=== PATIENT | female | born 1990 | race Two or more races ===

== ENCOUNTER 2017-02-19 12:16 | Emergency (ER) | payer SELFPAY ==
[~2017-02-19] VITALS: Ht 157.5 cm; Wt 60.8 kg
--- NOTE | 2017-02-19 12:20 | NUR ---
AAOX3, [employer]IBRA [employer] FROM SCHOOL C/O R KNEE PAIN WHILE TAKING THE STAIRS, NO OBVIOUS DEFORMITY OR TRAUMA NOTED. SKIN IS WARM AND DRY. RESP IS EVEN AND UNLABORED WITH NAD NOTED. AWAITING MD FOR EVAL.
[2017-02-19] MEDS ORDERED: HYDROCODONE/APAP 10/325MG 1 EA TABLET ONE (12:37)
[2017-02-19] MEDS ORDERED: IBUPROFEN 600 MG TABLET PO ONE ×2 (12:37→13:00)
[2017-02-19] MEDS ORDERED: HYDROCODONE/APAP 10/325MG 1 EA TABLET PO ONE (13:00)
--- NOTE | 2017-02-19 13:40 | NUR ---
KIRSTEN HERNÁNDEZ AT FOR AN UPDATE AND RE-EVAL.
--- NOTE | 2017-02-19 13:51 | NUR ---
Patient discharged to home in stable condition. Written and verbal after care instructions given. Patient verbalizes understanding of instruction.
[2017-02-19 13:54] VITALS: BP 117/75
== END 2017-02-19 13:55 | disposition home or self-care (01) ==
LOC: ER 12:19
DX: S80.01XA Contusion of right knee, initial encounter (principal); W10.9XXA Fall (on) (from) unspecified stairs and steps, initial encounter; Y93.89 Activity, other specified; Y92.89 Other specified places as the place of occurrence of the external cause; Y99.8 Other external cause status
CPT/HCPCS: 29505; 73564; 99284; A4606; Z7610

== ENCOUNTER 2018-11-10 17:54 | Emergency (ER) | payer MEDICAID ==
[~2018-11-10] VITALS: Ht 157.5 cm; Wt 61.2 kg
[2018-11-10] MEDS ORDERED: HYDROCODONE/APAP 5/325MG 1 EACH TABLET ONE (18:08)
--- NOTE | 2018-11-10 18:09 | NUR ---
PT BIB SELF sciatic pain x 6-7 months, worsening recently, PT IS AAOX4, NOT IN RESPIRATORY DISTRESS, V/S STABLE, KEPT RESTED AND COMFORTABLE.
--- NOTE | 2018-11-10 18:16 | NUR ---
MS. DUTTON DEGRASSE AT BEDSIDE FOR EVAL.
[2018-11-10] MEDS ORDERED: oxyCODONE/APAP (5/325 MG) 1 UDTAB TABLET ONE (18:21)
[2018-11-10] MEDS ORDERED: ONDANSETRON 4 MG TAB.RAPDIS ONE (18:21)
[2018-11-10] MEDS ORDERED: KETOROLAC TROMETHAMINE INJ 30 MG/ML VIAL ONE (18:21)
[2018-11-10] MEDS ORDERED: oxyCODONE/APAP (5/325 MG) 1 UDTAB TABLET PO ONE (18:30)
[2018-11-10] MEDS ORDERED: ONDANSETRON 4 MG TAB.RAPDIS SL ONE (18:30)
[2018-11-10] MEDS ORDERED: KETOROLAC TROMETHAMINE INJ 60 MG/2 ML VIAL IM ONE (18:30)
[2018-11-10] MEDS ORDERED: MORPHINE SULFATE INJ 2 MG/ML DISP.SYRIN IM ONE (19:30)
[2018-11-10] MEDS ORDERED: MORPHINE SULFATE INJ 4 MG/ML DISP.SYRIN ONE (19:34)
--- NOTE | 2018-11-10 19:41 | NUR ---
REPORT GIVEN TO CONSTANTINO DENNIS FOR MONITORING OF PAIN.
--- NOTE | 2018-11-10 19:53 | NUR ---
Patient discharged to home in stable condition. Written and verbal after care instructions given. Patient verbalizes understanding of instruction. PT AMBULATORY WITH STEADY GAIT WITH FAMILY MEMBER.
[2018-11-10 19:54] VITALS: BP 124/67
== END 2018-11-10 19:54 | disposition home or self-care (01) ==
LOC: ER 18:03
DX: M54.16 Radiculopathy, lumbar region (principal); G89.29 Other chronic pain; M54.41 Lumbago with sciatica, right side
CPT/HCPCS: 96372 ×2; 99283; A4606; J1885; J2270; Q0162; Z7610

== ENCOUNTER 2018-11-28 12:23 | Emergency (ER) | payer MEDICAID ==
[~2018-11-28] VITALS: Ht 157.5 cm; Wt 62.1 kg
--- NOTE | 2018-11-28 12:45 | NUR ---
BIB SELF C/O LOW BACK PAIN RADIATING TO RT LEG & NUMBNESS ON TOES. NON TRAUMATIC PER PT. AAOX4, VSS. DENIES ANY OTHER DISCOMFORT & WILL CONT TO MONITOR.
[2018-11-28] MEDS ORDERED: KETOROLAC TROMETHAMINE INJ 30 MG/ML VIAL ONE (13:08)
[2018-11-28] MEDS ORDERED: KETOROLAC TROMETHAMINE INJ 60 MG/2 ML VIAL IM ONE (13:30)
[2018-11-28] MEDS: oxyCODONE/APAP (5/325 MG) 1 UDTAB TABLET PO ONE ×2 (13:32→14:14)
[2018-11-28] MEDS ORDERED: oxyCODONE/APAP (5/325 MG) 1 UDTAB TABLET ONE (14:00)
[2018-11-28 14:33] VITALS: BP 128/60
--- NOTE | 2018-11-28 14:33 | NUR ---
Patient discharged to home in stable condition. Written and verbal after care instructions given. Patient verbalizes understanding of instruction.
== END 2018-11-28 14:34 | disposition home or self-care (01) ==
LOC: ER 12:24
DX: M54.16 Radiculopathy, lumbar region (principal); G89.29 Other chronic pain
CPT/HCPCS: 84703-TC; J1885

== ENCOUNTER 2018-12-01 01:17 | Emergency (ER) | payer MEDICAID ==
[~2018-12-01] VITALS: Ht 157.5 cm; Wt 59.0 kg
[2018-12-01 01:28] VITALS: BP 119/76
--- NOTE | 2018-12-01 01:30 | NUR ---
PT CAME WITH FRIEND TO ER C/O R LEG PAIN, 08/20 THAT KEPT HER FROM SLEEPING TONIGHT. PT ADMITS TO HAVING HX OF SCIATICA. PT CRYING AND LAYING SUPINE IN THE BED COMPLAINING OF PAIN. PT AAXO4. RESPIRATIONS EVEN AND UNLABORED. PT PUT ON THE MONITOR AND AWAITING EVAL FROM ER .
[2018-12-01] MEDS ORDERED: KETOROLAC TROMETHAMINE INJ 30 MG/ML VIAL ONE (02:55)
[2018-12-01] MEDS ORDERED: ONDANSETRON 4 MG TAB.RAPDIS ONE (02:56)
[2018-12-01] MEDS ORDERED: MORPHINE SULFATE INJ 10 MG/ML DISP.SYRIN ONE (02:56)
[2018-12-01] MEDS ORDERED: KETOROLAC TROMETHAMINE INJ 60 MG/2 ML VIAL IM ONE (03:00)
[2018-12-01] MEDS ORDERED: MORPHINE SULFATE INJ 2 MG/ML DISP.SYRIN IM ONE (03:00)
[2018-12-01] MEDS ORDERED: ONDANSETRON 4 MG TAB.RAPDIS SL ONE (03:00)
== END 2018-12-01 03:31 | disposition home or self-care (01) ==
LOC: ER 01:17
DX: M54.41 Lumbago with sciatica, right side (principal); G89.29 Other chronic pain
CPT/HCPCS: J1885; J2270; Q0162

== ENCOUNTER 2018-12-03 06:14 | Emergency (ER) | payer MEDICAID ==
[~2018-12-03] VITALS: Ht 157.5 cm; Wt 59.0 kg
[2018-12-03] MEDS ORDERED: ONDANSETRON 4 MG TAB.RAPDIS ONE (06:52)
[2018-12-03] MEDS ORDERED: HYDROMORPHONE INJ 0.5 MG/0.5 ML SYRINGE ONE ×2 (06:52→07:47)
[2018-12-03] MEDS ORDERED: KETOROLAC TROMETHAMINE INJ 30 MG/ML VIAL ONE (06:52)
[2018-12-03] MEDS ORDERED: KETOROLAC TROMETHAMINE INJ 30 MG/ML VIAL IM ONE (07:00)
[2018-12-03] MEDS ORDERED: MORPHINE SULFATE INJ 2 MG/ML DISP.SYRIN IM ONE (07:00)
[2018-12-03] MEDS ORDERED: HYDROMORPHONE INJ 0.5 MG/0.5 ML SYRINGE IM ONE ×2 (07:00→08:00)
[2018-12-03] MEDS ORDERED: ONDANSETRON HCL 4 MG/5 ML SOLUTION PO ONE (07:00)
--- NOTE | 2018-12-03 07:04 | NUR ---
PT REC'D MEDICATION AND WARM BLANKETS. PT IS CRYING AND MOANING IN PAIN.
--- NOTE | 2018-12-03 07:12 | NUR ---
REPORT GIVEN TO CONSTANTINO SPAULDING FOR BONILLA.
--- NOTE | 2018-12-03 08:00 | NUR ---
HOTPACKS APPLIED TO R LOWER BACK
[2018-12-03] MEDS ORDERED: DIAZEPAM 10 MG TABLET ONE (08:30)
[2018-12-03] MEDS ORDERED: DIAZEPAM 10 MG TABLET PO ONE (08:30)
--- NOTE | 2018-12-03 09:25 | NUR ---
INSERTED PIV ON RAC G20, PATIENT IS STILL CRYING AND MOANING IN PAIN.
[2018-12-03 09:51] VITALS: BP 117/67
[2018-12-03] MEDS ORDERED: HYDROMORPHONE INJ 2 MG/ML DISP.SYRIN ONE (10:36)
--- NOTE | 2018-12-03 10:48 | NUR ---
[facility] PT IS GOING TO [facility] ROOM 206-[address], GIVE REPORT TO SUN [phone], ETA: [id number]-1215PM.
[2018-12-03] MEDS ORDERED: HYDROMORPHONE 1 MG/1 ML DISP.SYRIN IV ONE (11:00)
--- NOTE | 2018-12-03 11:43 | NUR ---
REPORT GIVEN TO SUN AT [facility].
--- NOTE | 2018-12-03 12:48 | NUR ---
Patient Tranfers to outside Facility Physician: DR. MCDOWELL Location: [facility] PATIENT A/OX4, PAIN TOLERABLE AT THIS TIME, NAD, VSS. LEFT WITH 2 CORONER VIA AMBULANCE.
== END 2018-12-03 12:53 | disposition short-term general hospital (02) ==
LOC: ER 06:20
DX: G89.29 Other chronic pain (principal); M54.41 Lumbago with sciatica, right side
CPT/HCPCS: J1170; J1885; Q0162

== ENCOUNTER 2018-12-09 19:45 | Emergency (ER) | payer MEDICAID ==
[~2018-12-09] VITALS: Ht 157.5 cm; Wt 59.0 kg
[2018-12-09] MEDS ORDERED: IV NS 0.9% 1,000 ML BAG IV ONE (20:30)
[2018-12-09] MEDS ORDERED: ONDANSETRON HCL/PF 4 MG/2 ML VIAL IVP ONE (20:30)
[2018-12-09] MEDS ORDERED: HYDROMORPHONE INJ 2 MG/ML DISP.SYRIN IV ONE (20:30)
[2018-12-09] MEDS ORDERED: HYDROMORPHONE 1 MG/1 ML DISP.SYRIN ONE ×3 (20:39→22:20)
[2018-12-09] MEDS ORDERED: ONDANSETRON HCL/PF 4 MG/2 ML VIAL ONE (20:39)
[2018-12-09 20:41] LABS: BASOPHILS % (AUTO) 0.3 % (0.0-2.0); EOSINOPHILS % (AUTO) 0.5 % (0.0-6.0); HEMATOCRIT 41 % (33-45); HEMOGLOBIN 13.8 g/dL (11.5-14.8); LYMPHOCYTES # (AUTO) 1.3 /CMM (0.8-4.8); LYMPHOCYTES % (AUTO) 11.5 % (20.0-44.0); MEAN CORPUSCULAR HGB CONC 34 g/dl (31.0-36.0); MEAN CORPUSCULAR VOLUME 89 fL (82-100); MONOCYTES # (AUTO) 0.8 /CMM (0.1-1.30); MONOCYTES % (AUTO) 7.4 % (2.0-12.0); NEUTROPHILS % (AUTO) 80.3 % (43.0-81.0); PLATELET COUNT (AUTO) 238 /CMM (150-450); WHITE BLOOD COUNT (AUTO) 11.2 K/uL (4.3-11.0)
--- NOTE | 2018-12-09 20:45 | NUR ---
BIBSELF C/O SEVERE LOWER ABDOMINAL PAIN X1 DAY. PT RECENTLY HAD SX FOR HERNIATED DISK X4 DAYS AGO. LAST BM X4 DAYS AGO. PT AAOX4, VSS. DENIES NUMBNESS OR TINGLING SENSATION ON BOTH LEGS. PT SEEN & EVAL'D BY KIRSTEN HERNANDEZ & WILL CONT TO MONITOR.
--- NOTE | 2018-12-09 20:52 | NUR ---
PT TO XRAY VIA [facility]. MEDICATED FOR PAIN PER KIRSTEN HERNANDEZ'S ORDER, PT MURTAZA WELL.
[2018-12-09 20:54] LABS: BILIRUBIN,DIRECT 0.1 mg/dL (0.0-0.2); BILIRUBIN,TOTAL 0.3 mg/dL (0.2-1.0); CALCIUM, SERUM 9.2 mg/dL (8.5-10.1); CREATININE 0.6 mg/dL (0.6-1.3); POTASSIUM 3.6 mmol/L (3.5-5.1)
[2018-12-09 20:55] LABS: ALBUMIN 3.4 g/dL (3.4-5.0); TOTAL PROTEIN, SERUM 7.3 g/dL (6.4-8.2)
[2018-12-09] MEDS ORDERED: IOHEXOL-300 100 ML VIAL IV ONE (21:17)
[2018-12-09] MEDS ORDERED: CT SWABBABLE VALVE TRANS SET 1 EA INFUS.SET MC ONE (21:18)
[2018-12-09] MEDS ORDERED: IV NS 0.9% 250 ML IV ONE (21:18)
[2018-12-09] MEDS ORDERED: MAGNESIUM CITRATE 296 ML BOTTLE PO ONE (22:00)
[2018-12-09] MEDS ORDERED: NA PHOS,M-B/NA PHOS,DI-BA 1 EA ENEMA RC ONE ×2 (22:00→22:58)
[2018-12-09] MEDS: HYDROMORPHONE 1 MG/1 ML DISP.SYRIN IV ONE ×2 (22:06→22:24)
--- NOTE | 2018-12-09 22:30 | NUR ---
MEDICATED FOR PAIN PER MARSII, SERVICE COUNTER CASHIER ORDER, PT MURTAZA WELL.
[2018-12-09] MEDS ORDERED: LIDOCAINE 2% JEL UROJET 10 ML MM ONE (22:38)
[2018-12-09] MEDS ORDERED: MAGNESIUM CITRATE 296 ML BOTTLE ONE (22:58)
--- NOTE | 2018-12-09 23:11 | NUR ---
FLEET ENEMA X1 GIVEN BY KIRSTEN HERNANDEZ, PT MURTAZA WELL.
[2018-12-10 01:06] VITALS: BP 115/80
== END 2018-12-10 01:07 | disposition home or self-care (01) ==
LOC: ER 19:53
DX: K59.00 Constipation, unspecified (principal); G89.29 Other chronic pain; M54.41 Lumbago with sciatica, right side
CPT/HCPCS: 36415; 74021; 80048-TC; 80076-TC; 83605-TC; 83690-TC; 85025-TC; J1170; J2405; J3490; J7030; J7050; Q9967

== ENCOUNTER 2019-05-06 19:16 | Emergency (ER) | payer MEDICAID ==
[~2019-05-06] VITALS: Ht 157.5 cm; Wt 61.2 kg
--- NOTE | 2019-05-06 19:27 | NUR ---
PT BIBSELF C/O LOWER ABDOMINAL PAIN X3 DAYS. +DYSURIA, +HEMATURIA, +NAUSEA, -DIARRHEA, -FLANK PAIN, -FEVER. PT AOX4. PT ON MONITOR IN BED 9. WILL CONTINUE TO MONITOR.
[2019-05-06] MEDS ORDERED: ONDANSETRON HCL/PF 4 MG/2 ML VIAL IVP ONE (19:30)
[2019-05-06] MEDS ORDERED: KETOROLAC TROMETHAMINE INJ 30 MG/ML VIAL IV ONE (19:30)
--- NOTE | 2019-05-06 19:35 | NUR ---
URINE COLLECTED AND SENT TO LAB
[2019-05-06] MEDS ORDERED: KETOROLAC TROMETHAMINE 15 MG/ML VIAL ONE (19:48)
[2019-05-06] MEDS ORDERED: ONDANSETRON HCL/PF 4 MG/2 ML VIAL ONE ×2 (19:48→21:26)
--- NOTE | 2019-05-06 19:48 | NUR ---
BLOOD DRAWN AND GIVEN TO LAB
[2019-05-06 19:52] LABS: BASOPHILS # (AUTO) 0.1 /CMM (0.0-0.2); BASOPHILS % (AUTO) 1.3 % (0.0-2.0); EOSINOPHILS % (AUTO) 2.4 % (0.0-6.0); HEMATOCRIT 43 % (33-45); HEMOGLOBIN 14.6 g/dL (11.5-14.8); LYMPHOCYTES # (AUTO) 1.9 /CMM (0.8-4.8); LYMPHOCYTES % (AUTO) 20.5 % (20.0-44.0); MEAN CORPUSCULAR HGB CONC 34 g/dl (31.0-36.0); MEAN CORPUSCULAR VOLUME 88 fL (82-100); MONOCYTES # (AUTO) 0.9 /CMM (0.1-1.30); MONOCYTES % (AUTO) 9.4 % (2.0-12.0); NEUTROPHILS # (AUTO) 6.1 /CMM (1.8-8.9); NEUTROPHILS % (AUTO) 66.4 % (43.0-81.0); PLATELET COUNT (AUTO) 241 /CMM (150-450); RED BLOOD CELL COUNT(AUTO) 4.85 MIL/uL (4.0-5.2); WHITE BLOOD COUNT (AUTO) 9.2 K/uL (4.3-11.0)
[2019-05-06 20:00] LABS: APPEARANCE,URINE Cloudy (CLEAR); BILIRUBIN,URINE SMALL (NEGATIVE); BLOOD, URINE Large Ery/uL (NEGATIVE); COLOR,URINE Amber (YELLOW); KETONES,URINE Trace (NEGATIVE); LEUKOCYTE ESTERASE ,URINE Large (NEGATIVE); NITRITE, URINE Negative (NEGATIVE); PROTEIN,URINE >=300 mg/dl (NEGATIVE); UGLUCOSE Negative (NEGATIVE)
[2019-05-06] MEDS ORDERED: HYDROMORPHONE 1 MG/1 ML DISP.SYRIN ONE (20:19)
[2019-05-06 20:22] LABS: BACTERIA,URINE Moderate /HPF (None Seen); RBC,URINE 21-50 /HPF (0-2); SQUAMOUS EPITHELIAL CELL,UR Few /HPF (None Seen); URINE AMORPHOUS URATE Moderate /HPF (None Seen); WBC,URINE TOO NUMEROUS TO COUN /HPF (0-3)
[2019-05-06 20:23] LABS: CALCIUM, SERUM 9.2 mg/dL (8.5-10.1); CREATININE 0.6 mg/dL (0.6-1.3); POTASSIUM 3.7 mmol/L (3.5-5.1)
[2019-05-06 20:28] LABS: ALBUMIN 4.1 g/dL (3.4-5.0); BILIRUBIN,DIRECT 0.1 mg/dL (0.0-0.2); BILIRUBIN,TOTAL 0.7 mg/dL (0.2-1.0)
[2019-05-06] MEDS ORDERED: HYDROMORPHONE INJ 0.5 MG/0.5 ML SYRINGE IV ONE (20:30)
[2019-05-06 20:48] VITALS: BP 148/76
[2019-05-06] MEDS ORDERED: CEFTRIAXONE 1GM BAG (ER ONLY) 50 ML IV ONE (20:53)
[2019-05-06] MEDS ORDERED: CEFTRIAXONE 1 G in IV D5W 50 ML IV ONE (21:00)
[2019-05-06] MEDS ORDERED: IV NS 0.9% 1,000 ML BAG IV ONE (21:00)
--- NOTE | 2019-05-06 21:15 | NUR ---
V/O RECEIVED FROM DR. PAIGE FOR ZOFRAN 4MG IVP
--- NOTE | 2019-05-06 21:39 | NUR ---
IV removed. Catheter intact and site benign. Pressure and 4x4 applied to site. No bleeding noted.Patient discharged to home in stable condition. Written and verbal after care instructions given. Patient verbalizes understanding of instruction. PT AMBULATORY WITH STEADY GAIT.
[2019-05-06] MEDS ORDERED: ONDANSETRON HCL/PF - ER 4 MG/2 ML VIAL IM ONE (22:00)
== END 2019-05-06 21:46 | disposition home or self-care (01) ==
LOC: ER 19:19
DX: N39.0 Urinary tract infection, site not specified (principal); G89.29 Other chronic pain; M54.41 Lumbago with sciatica, right side; F10.10 Alcohol abuse, uncomplicated; Y90.9 Presence of alcohol in blood, level not specified; Z98.890 Other specified postprocedural states
CPT/HCPCS: 36415; 80048; 80076; 81001; 83690; 84703; 85025; 87086; 96365; 96372; 96375; 99283; J0696; J1170; J1885; J2405 ×3; J7030; J7060; 81000-TC

== ENCOUNTER 2019-10-21 05:47 | Emergency (ER) | payer MEDICAID ==
[~2019-10-21] VITALS: Ht 157.5 cm; Wt 59.0 kg
--- NOTE | 2019-10-21 06:17 | NUR ---
PT PRESENTED TO THE ER WITH A C/O FLU LIKE SYMPTOMS FOR A FEW DAYS- COUGH, FEVER, BODY ACHES, NAUSEA. PT APPEARS ANXIOUS AND EXPLAINED THAT SHE IS TAKING FINALS AT SCHOOL AND A LETTER FROM SCHOOL WAS SENT OUT RE: A VIRUS THAT IS GOING AROUND CAMPUS. PT IS WORRIED THAT SHE MIGHT HAVE WHOOPING COUGH. PT HAS SHALLOW BREATHING AND IS STARTING TO HYPERVENTILATE. PT IS C/O FEELING TINGLING SENSATIONS IN HER FINGERS. PT WAS INSTRUCTED TO SLOW HER BREATHING DOWN. ASSESSED PT'S LUNGS AND THERE ARE CLEAR LUNG SOUNDS BILATERALLY. PT IS ON THE MONITOR AND CONTINUOUS PULSE OX.
--- NOTE | 2019-10-21 06:19 | NUR ---
DR FERRELL IS AT THE BEDSIDE.
[2019-10-21] MEDS ORDERED: LORAZEPAM INJ 2 MG/ML VIAL ONE (06:20)
--- NOTE | 2019-10-21 06:57 | NUR ---
PT APPEARS TO BE RESTING COMFORTABLY. NO S/S OF PAIN OR DISTRESS NOTED. PT IS ON THE MONITOR AND CONTINUOUS PULSE OX. VSS.
[2019-10-21] MEDS ORDERED: LORAZEPAM INJ 2 MG/ML VIAL IM ONE (07:00)
[2019-10-21 09:04] VITALS: BP 100/67
--- NOTE | 2019-10-21 09:04 | NUR ---
Patient discharged to home in stable condition. Written and verbal after care instructions given. Patient verbalizes understanding of instruction.
== END 2019-10-21 09:04 | disposition home or self-care (01) ==
LOC: ER 05:48
DX: R06.00 Dyspnea, unspecified (principal); F45.8 Other somatoform disorders; J11.1 Influenza due to unidentified influenza virus with other respiratory manifestations; G89.29 Other chronic pain; M54.41 Lumbago with sciatica, right side; F10.10 Alcohol abuse, uncomplicated; Y90.9 Presence of alcohol in blood, level not specified; Z98.890 Other specified postprocedural states
CPT/HCPCS: 84703; 87804 ×2; 96372; 99283; J2060

== ENCOUNTER 2024-03-21 13:43 | Emergency (ER) | payer MEDICAID, OTHER ==
[~2024-03-21] VITALS: Ht 162.6 cm; Wt 59.0 kg
[2024-03-21 14:37] VITALS: BP 117/77; TEMP 98.6
[2024-03-21] MEDS ORDERED: POLY10DR OP (14:52)
[2024-03-21 14:56] VITALS: O2SAT 100
== END 2024-03-21 14:57 | disposition home or self-care (01) ==
LOC: ER 13:53
DX: H10.9 Unspecified conjunctivitis (principal); G89.29 Other chronic pain